=== PATIENT | female | born 1965 | race Caucasian/White ===

== ENCOUNTER 2021-12-17 20:18 | Inpatient (IN) ==
[~2021-12-17 20:18] MED LIST: 0.9 % Sodium Chloride 1,000 ML IVC SCH; Naloxone 0.4 MG/ML INJ IVP PRN; Ondansetron 4 MG/2 ML VIAL IVP PRN; Ringers Solution, Lactated 1,000 ML IVC SCH
[2021-12-17] MEDS ORDERED: Lactulose Oral Soln 20 GM/30 ML UDC PO ONE (20:51)
[2021-12-17] MEDS ORDERED: Sennosides/Docusate Sodium TABLET PO PRN (20:52)
[2021-12-17] MEDS ORDERED: lamoTRIgine 100 MG TABLET PO SCH (22:00)
[2021-12-17] MEDS ORDERED: (Clobazam [Onfi] 10 MG Tablet) PO SCH ×2 (22:00→22:30)
[2021-12-17 23:49] LABS: Bilirubin,Urine Negative (Negative); Blood,Urine Negative (Negative); Clarity,Urine Clear (Clear); Color,Urine Light-Yellow (Yellow); Glucose,Urine (UA) Normal (Normal); Ketones,Urine Negative (Negative); Leukocyte Esterase,Urine Negative (Negative); Nitrite,Urine Negative (Negative); Protein,Urine Trace mg/dL (Neg-Trace); Specific Gravity,Urine 1.018 (1.010-1.025); Urobilinogen,Urine Normal (Normal)
[2021-12-18 05:59] LABS: Basophils # 0.1 K/mcL (0.0-0.2); Basophils % 0.6 %; Eosinophils # 0.5 K/mcL (0.0-0.6); Eosinophils % 5.8 %; Hematocrit 32.1 % (35.3-44.9); Hemoglobin 10.3 g/dL (11.5-15.4); Immature Granulocytes % 0.4 % (0-4); Lymphocytes # 2.4 K/mcL (0.6-4.6); Lymphocytes % 29.6 %; Mean Corpuscular HGB Conc 32.1 g/dL (31.6-35.5); Mean Corpuscular Hemoglobin 30.2 pg (28.0-33.3); Mean Corpuscular Volume 94.1 fL (83.0-100.0); Mean Platelet Volume 9.4 fL (9.4-12.4); Monocytes # 0.8 K/mcL (0.0-1.3); Monocytes % 9.2 %; Neutrophils # 4.5 K/mcL (1.6-8.9); Platelet Count 209 K/mcL (140-400); Red Blood Count 3.41 M/mcL (3.82-4.97); Red Cell Distribution Width 12.2 % (11.5-14.5); Segmented Neutrophils % 54.4 %; White Blood Count 8.3 K/mcL (4.3-11.1)
[2021-12-18 06:05] LABS: INR 1.1; Prothrombin Time 12.7 Seconds (9.4-12.1)
[2021-12-18 06:21] LABS: BUN/Creatinine Ratio 19 (6-26); Blood Urea Nitrogen 14 mg/dL (6-20); Calcium 9.3 mg/dL (8.6-10.3); Carbon Dioxide 27 mEq/L (23-29); Chloride 109 mEq/L (98-107); Glucose 85 mg/dL (70-105); Magnesium 1.6 mg/dL (1.6-2.6); Osmolality,Calculated 292 (280-300); Sodium 141 mEq/L (136-145); eGFR For African Americans > 60 (> 60); eGFR For Non-African Americans > 60 (> 60)
[2021-12-18] MEDS ORDERED: SODIUM CHLORIDE 0.9% IVPB ONE (06:29)
[2021-12-18] MEDS ORDERED: GENTAMICIN IVPB ONE (06:29)
[2021-12-18] MEDS ORDERED: Famotidine 20 MG TABLET PO ONE (07:00)
[2021-12-18] MEDS ORDERED: CeFAZolin Syr 2,000MG/20 ML 2,000 MG/20 ML SYRINGE IVPB ONE (07:04)
[2021-12-18] MEDS ORDERED: *HR* Midazolam HCl 2 MG/2 ML VIAL ONE (07:12)
[2021-12-18] MEDS ORDERED: *HR* FentaNYL (PF) 100 MCG/2 ML VIAL ONE (07:12)
[2021-12-18] MEDS ORDERED: Lidocaine -MPF 2% 5 ML VIAL ONE (07:12)
[2021-12-18] MEDS ORDERED: Vancomycin 1,000 MG VIAL ONE (07:17)
[2021-12-18] MEDS ORDERED: Ondansetron 4 MG/2 ML VIAL ONE (07:18)
[2021-12-18] MEDS ORDERED: Povidone-Iodine 45 ML, Sodium Chloride IRRigation 1,000 ML IR ONE (07:45)
[2021-12-18] MEDS ORDERED: TOTAL JOINT MIXTURE (100ML) INTRAART ONE (07:45)
[2021-12-18] MEDS ORDERED: EPHEDrine 50 MG/ML VIAL ONE (08:18)
[2021-12-18] MEDS ORDERED: Tranexamic Acid 1,000 MG/10 ML VIAL ONE (08:43)
[2021-12-18] MEDS ORDERED: Albumin Human 5% 25.0 GM/500 ML IV.SOLN ONE (08:46)
[2021-12-18] MEDS ORDERED: *HR* Rocuronium Bromide 50 MG/5 ML VIAL ONE ×2 (08:59→10:37)
[2021-12-18] MEDS ORDERED: Cyanocobalamin (B-12) 1,000 MCG TABLET PO SCH (09:00)
[2021-12-18] MEDS ORDERED: (Ezetimibe [Zetia] 10 MG Tablet) PO SCH (09:00)
[2021-12-18] MEDS ORDERED: (Clobazam [Onfi] 10 MG Tablet) PO SCH (09:00)
[2021-12-18] MEDS ORDERED: *HR* Phenylephrine 10 MG/ML VIAL ONE (09:23)
[2021-12-18 10:00] LABS: Basophils # 0.1 K/mcL (0.0-0.2); Basophils % 0.5 %; Eosinophils # 0.4 K/mcL (0.0-0.6); Eosinophils % 4.1 %; Hematocrit 29.9 % (35.3-44.9); Hemoglobin 9.7 g/dL (11.5-15.4); Immature Granulocytes % 0.7 % (0-4); Lymphocytes # 2.8 K/mcL (0.6-4.6); Lymphocytes % 25.7 %; Mean Corpuscular HGB Conc 32.4 g/dL (31.6-35.5); Mean Corpuscular Hemoglobin 30.6 pg (28.0-33.3); Mean Corpuscular Volume 94.3 fL (83.0-100.0); Mean Platelet Volume 9.7 fL (9.4-12.4); Monocytes # 0.6 K/mcL (0.0-1.3); Monocytes % 5.5 %; Neutrophils # 6.8 K/mcL (1.6-8.9); Platelet Count 201 K/mcL (140-400); Red Blood Count 3.17 M/mcL (3.82-4.97); Red Cell Distribution Width 12.2 % (11.5-14.5); Segmented Neutrophils % 63.5 %; White Blood Count 10.7 K/mcL (4.3-11.1)
[2021-12-18] MEDS ORDERED: *HR* HYDROMORPHONE 2 MG/ML VIAL ONE (10:37)
[2021-12-18] MEDS ORDERED: Ethanol\\Acetic Acid\\Na Ace\\Ben 1,000 ML IRRIG.SOLN IR ONE (10:41)
[2021-12-18] MEDS ORDERED: Ketorolac 30 MG/ML VIAL IVP PRN (13:25)
[2021-12-18] MEDS ORDERED: *HR* HYDROmorphone 2 MG TABLET PO PRN (13:25)
[2021-12-18] MEDS ORDERED: *HR* Labetalol 20 MG/4 ML SYRINGE IVP PRN (13:25)
[2021-12-18] MEDS: *HR* HYDROmorphone PF 0.5 MG/0.5 ML SYRINGE IVP PRN ×2 (13:45→13:51)
[2021-12-18] MEDS ORDERED: Albumin Human 5% 12.5 GM/250 ML IV.SOLN IVPB ONE (14:14)
[2021-12-18 14:42] LABS: Hematocrit 26.2 % (35.3-44.9); Hemoglobin 8.6 g/dL (11.5-15.4); Mean Corpuscular HGB Conc 32.8 g/dL (31.6-35.5); Mean Corpuscular Hemoglobin 30.9 pg (28.0-33.3); Mean Corpuscular Volume 94.2 fL (83.0-100.0); Mean Platelet Volume 9.7 fL (9.4-12.4); Platelet Count 187 K/mcL (140-400); Red Blood Count 2.78 M/mcL (3.82-4.97); Red Cell Distribution Width 12.3 % (11.5-14.5)
[2021-12-18] MEDS ORDERED: Albumin Human 5% 12.5 GM/250 ML IV.SOLN ONE (16:12)
[2021-12-18] MEDS ORDERED: *HR* HYDROcodone/Acet 10/325 mg TABLET PO PRN (16:12)
[2021-12-18] MEDS ORDERED: Pregabalin 75 MG CAPSULE PO ONE (16:14)
[2021-12-18] MEDS ORDERED: Albumin Human 5% 12.5 GM/250 ML IV.SOLN IVC SCH (16:15)
[2021-12-18] MEDS ORDERED: Acetaminophen IV 1,000 MG/100 ML BAG IVPB ONE (16:15)
[2021-12-18] MEDS: *HR* FentaNYL (PF) 100 MCG/2 ML VIAL IVP PRN ×2 (16:17→16:22)
[2021-12-18] MEDS ORDERED: Ringers Solution, Lactated 1,000 ML IVC SCH (17:23)
[2021-12-18] MEDS ORDERED: Sennosides 8.6 MG TABLET PO PRN (17:23)
[2021-12-18] MEDS ORDERED: Ondansetron 4 MG/2 ML VIAL IVP PRN (17:23)
[2021-12-18] MEDS ORDERED: MOM Conc 10 ML UD.LIQ PO PRN (17:23)
[2021-12-18] MEDS ORDERED: Naloxone 0.4 MG/ML INJ IVP PRN (17:23)
[2021-12-18] MEDS ORDERED: *HR* Promethazine 25 MG/ML VIAL IM PRN (17:23)
[2021-12-18] MEDS ORDERED: 0.9 % Sodium Chloride 250 ML IVC SCH (17:30)
[2021-12-18] MEDS: Ascorbic Acid 500 MG TABLET PO SCH (18:44)
[2021-12-18] MEDS: Ketorolac 30 MG/ML VIAL IVP SCH (18:45)
[2021-12-18] MEDS: CeFAZolin 2 GM/120 ML BAG IVPB SCH (19:06)
[2021-12-18] MEDS: HYDROcodone BIT/Homatropine 5 MG TABLET PO PRN (21:33)
[2021-12-19] MEDS: Ketorolac 30 MG/ML VIAL IVP SCH ×2 (00:01→05:53)
[2021-12-19] MEDS: CeFAZolin 2 GM/120 ML BAG IVPB SCH ×3 (01:41→18:16)
[2021-12-19] MEDS: Ascorbic Acid 500 MG TABLET PO SCH ×2 (07:47→18:16)
[2021-12-19] MEDS: Multivit/Ca/Min/Fe/FA 1 TAB TABLET PO SCH (07:47)
[2021-12-19] MEDS ORDERED: Ketorolac 30 MG/ML VIAL IVP PRN (10:00)
[2021-12-19] MEDS: Aspirin Enteric Coated 81 MG Tablet PO SCH ×2 (11:22→21:59)
[2021-12-19] MEDS: Sennosides/Docusate Sodium TABLET PO SCH ×2 (11:22→21:59)
[2021-12-19] MEDS: Loratadine 10 MG TABLET PO SCH (11:22)
[2021-12-19] MEDS: polyethylene glycoL 3350 17 GM POWD.PACK PO SCH (11:23)
[2021-12-19 13:09] LABS: Basophils # 0.1 K/mcL (0.0-0.2); Basophils % 0.5 %; Eosinophils # 0.1 K/mcL (0.0-0.6); Eosinophils % 1.3 %; Hematocrit 26.3 % (35.3-44.9); Hemoglobin 8.7 g/dL (11.5-15.4); Immature Granulocytes % 0.4 % (0-4); Lymphocytes # 1.9 K/mcL (0.6-4.6); Lymphocytes % 20.5 %; Mean Corpuscular HGB Conc 33.1 g/dL (31.6-35.5); Mean Corpuscular Hemoglobin 30.4 pg (28.0-33.3); Mean Platelet Volume 9.6 fL (9.4-12.4); Monocytes # 0.8 K/mcL (0.0-1.3); Monocytes % 8.7 %; Neutrophils # 6.2 K/mcL (1.6-8.9); Platelet Count 182 K/mcL (140-400); Red Blood Count 2.86 M/mcL (3.82-4.97); Red Cell Distribution Width 12.8 % (11.5-14.5); Segmented Neutrophils % 68.6 %; White Blood Count 9.1 K/mcL (4.3-11.1)
[2021-12-19 13:40] LABS: BUN/Creatinine Ratio 18 (6-26); Blood Urea Nitrogen 14 mg/dL (6-20); Calcium 9.2 mg/dL (8.6-10.3); Carbon Dioxide 27 mEq/L (23-29); Chloride 108 mEq/L (98-107); Glucose 94 mg/dL (70-105); Osmolality,Calculated 294 (280-300); Potassium 3.7 mEq/L (3.5-5.1); Sodium 142 mEq/L (136-145); eGFR For African Americans > 60 (> 60); eGFR For Non-African Americans > 60 (> 60)
[2021-12-19 13:41] LABS: Albumin 3.7 g/dL (3.5-5.7); Albumin/Globulin Ratio 1.9 (1.1-2.2); Bilirubin,Direct 0.1 mg/dL (0.0-0.2); Bilirubin,Indirect 0.3 mg/dL (0.0-1.0); Bilirubin,Total 0.4 mg/dL (0.3-1.0); Globulin 1.9 g/dL (2.4-3.5); Magnesium 1.7 mg/dL (1.6-2.6); Total Protein 5.6 g/dL (6.4-8.9)
[2021-12-19] MEDS: HYDROcodone BIT/Homatropine 5 MG TABLET PO PRN (18:16)
[2021-12-20] MEDS: CeFAZolin 2 GM/120 ML BAG IVPB SCH ×3 (02:02→17:53)
[2021-12-20 05:58] LABS: Basophils # 0.1 K/mcL (0.0-0.2); Basophils % 0.5 %; Eosinophils # 0.2 K/mcL (0.0-0.6); Eosinophils % 1.8 %; Hematocrit 24.7 % (35.3-44.9); Hemoglobin 8.1 g/dL (11.5-15.4); Immature Granulocytes % 0.5 % (0-4); Lymphocytes # 1.6 K/mcL (0.6-4.6); Lymphocytes % 15.3 %; Mean Corpuscular HGB Conc 32.8 g/dL (31.6-35.5); Mean Corpuscular Hemoglobin 30.6 pg (28.0-33.3); Mean Corpuscular Volume 93.2 fL (83.0-100.0); Monocytes # 1.2 K/mcL (0.0-1.3); Monocytes % 11.2 %; Neutrophils # 7.5 K/mcL (1.6-8.9); Platelet Count 174 K/mcL (140-400); Red Blood Count 2.65 M/mcL (3.82-4.97); Red Cell Distribution Width 12.9 % (11.5-14.5); Segmented Neutrophils % 70.7 %; White Blood Count 10.6 K/mcL (4.3-11.1)
[2021-12-20 06:15] LABS: BUN/Creatinine Ratio 16 (6-26); Blood Urea Nitrogen 12 mg/dL (6-20); Carbon Dioxide 26 mEq/L (23-29); Chloride 107 mEq/L (98-107); Glucose 93 mg/dL (70-105); Magnesium 1.5 mg/dL (1.6-2.6); Osmolality,Calculated 289 (280-300); Potassium 3.6 mEq/L (3.5-5.1); Sodium 140 mEq/L (136-145); eGFR For African Americans > 60 (> 60); eGFR For Non-African Americans > 60 (> 60)
[2021-12-20] MEDS: Ascorbic Acid 500 MG TABLET PO SCH ×2 (08:00→17:53)
[2021-12-20] MEDS: Aspirin Enteric Coated 81 MG Tablet PO SCH ×2 (08:00→19:18)
[2021-12-20] MEDS: Sennosides/Docusate Sodium TABLET PO SCH ×2 (08:00→19:18)
[2021-12-20] MEDS: Multivit/Ca/Min/Fe/FA 1 TAB TABLET PO SCH (08:00)
[2021-12-20] MEDS: polyethylene glycoL 3350 17 GM POWD.PACK PO SCH (08:01)
[2021-12-20] MEDS: Loratadine 10 MG TABLET PO SCH (08:01)
[2021-12-20] MEDS ORDERED: Iron Sucrose Complex 250 MG in 0.9 % Sodium Chloride 250 ML IVPB SCH (12:15)
[2021-12-20] MEDS: Cyanocobalamin (B-12) 1,000 MCG/ML VIAL SQ SCH (13:09)
[2021-12-20] MEDS: HYDROcodone BIT/Homatropine 5 MG TABLET PO PRN (14:48)
[2021-12-21] MEDS: CeFAZolin 2 GM/120 ML BAG IVPB SCH (03:35)
[2021-12-21] MEDS: HYDROcodone BIT/Homatropine 5 MG TABLET PO PRN ×3 (04:27→13:55)
[2021-12-21 05:41] VITALS: O2SAT 95
[2021-12-21 05:54] LABS: Basophils # 0.1 K/mcL (0.0-0.2); Basophils % 0.7 %; Eosinophils # 0.3 K/mcL (0.0-0.6); Hematocrit 24.6 % (35.3-44.9); Immature Granulocytes % 0.6 % (0-4); Lymphocytes % 18.4 %; Mean Corpuscular HGB Conc 32.5 g/dL (31.6-35.5); Mean Corpuscular Hemoglobin 30.3 pg (28.0-33.3); Mean Corpuscular Volume 93.2 fL (83.0-100.0); Mean Platelet Volume 9.8 fL (9.4-12.4); Monocytes # 1.1 K/mcL (0.0-1.3); Monocytes % 9.9 %; Neutrophils # 7.1 K/mcL (1.6-8.9); Platelet Count 189 K/mcL (140-400); Red Blood Count 2.64 M/mcL (3.82-4.97); Red Cell Distribution Width 12.8 % (11.5-14.5); Segmented Neutrophils % 67.4 %; White Blood Count 10.6 K/mcL (4.3-11.1)
[2021-12-21 06:17] LABS: BUN/Creatinine Ratio 17 (6-26); Blood Urea Nitrogen 13 mg/dL (6-20); Calcium 8.9 mg/dL (8.6-10.3); Carbon Dioxide 26 mEq/L (23-29); Chloride 108 mEq/L (98-107); Glucose 92 mg/dL (70-105); Magnesium 1.9 mg/dL (1.6-2.6); Osmolality,Calculated 292 (280-300); Potassium 3.6 mEq/L (3.5-5.1); Sodium 141 mEq/L (136-145); eGFR For African Americans > 60 (> 60); eGFR For Non-African Americans > 60 (> 60)
[2021-12-21] MEDS ORDERED: Iron Sucrose Complex 200 MG in 0.9 % Sodium Chloride 100 ML IVPB ONE (08:02)
[2021-12-21] MEDS: Cyanocobalamin (B-12) 1,000 MCG/ML VIAL SQ SCH (08:32)
[2021-12-21] MEDS: Sennosides/Docusate Sodium TABLET PO SCH (08:33)
[2021-12-21] MEDS: Loratadine 10 MG TABLET PO SCH (08:33)
[2021-12-21] MEDS: polyethylene glycoL 3350 17 GM POWD.PACK PO SCH (08:33)
[2021-12-21] MEDS: Multivit/Ca/Min/Fe/FA 1 TAB TABLET PO SCH (08:33)
[2021-12-21] MEDS: Ascorbic Acid 500 MG TABLET PO SCH (08:33)
[2021-12-21] MEDS: Aspirin Enteric Coated 81 MG Tablet PO SCH (08:33)
[2021-12-21 12:19] VITALS: BP 109/75; PULSE 70; TEMP 98.6
== END 2021-12-21 14:42 | disposition home health service (06) | DRG 323 ==
LOC: 4WAOSI → SUATTDRO 20:18 → EDSTATUS 12-18 07:45
PROVIDERS: ADMIT Orthopaedic Surgery; ATTEND Pharmacist